=== PATIENT | male | born 1965 | race Caucasian/White ===

== ENCOUNTER 2020-02-10 06:21 | Day surgery (SDC) | payer BC ==
[2020-02-03 15:11] LABS: BASOPHILS # (AUTO) 0.1 X10'3 (0-0.2); EOSINOPHILS # (AUTO) 0.2 X10'3 (0-0.9); EOSINOPHILS % (AUTO) 2.7 % (0-6); LYMPHOCYTES # (AUTO) 0.9 X10'3 (1.1-4.8); LYMPHOCYTES % (AUTO) 15.2 % (21-51); MEAN CORPUSCULAR HEMOGLOBIN 30.2 PG (27.0-31.0); MEAN CORPUSCULAR HGB CONC 34.5 g/dL (33.0-36.5); MEAN CORPUSCULAR VOLUME 87.6 FL (78-98); MEAN PLATELET VOLUME 8.5 FL (7.4-10.4); MONOCYTES # (AUTO) 0.6 X10'3 (0-0.9); NEUTROPHILS # (AUTO) 4.2 X10'3 (1.8-7.7); NEUTROPHILS % (AUTO) 71.1 % (42-75); PRE OP HEMATOCRIT 45.5 % (42.0-52.0); PRE OP HEMOGLOBIN 15.7 g/dL (14.0-17.9); PRE OP PLATELET COUNT 230 X10'3 (140-440); RED BLOOD COUNT 5.19 X10'6 (4.70-6.10); RED CELL DISTRIBUTION WIDTH 13.6 % (11.5-14.5)
[2020-02-03 15:20] LABS: PRE OP PROTIME 10.6 SECONDS (9.0-12.0)
[2020-02-03 15:21] LABS: ALBUMIN 4.1 G/DL (3.4-5.0); ALBUMIN/GLOBULIN RATIO 1.4 (1.1-1.5); ALKALINE PHOSPHATASE 71 IU/L (46-116); BLOOD UREA NITROGEN 13 MG/DL (7-18); CALCIUM 8.5 MG/DL (8.5-10.1); CHLORIDE 108 MMOL/L (99-107); CREATININE 1.18 MG/DL (0.60-1.10); PRE OP ALT 41 U/L (30-65); PRE OP ANION GAP 8 (8-16); PRE OP AST 22 U/L (10-37); PRE OP BILIRUB, TOTAL 0.3 MG/DL (0.0-1.0); PRE OP GLUCOSE 103 MG/DL (70-104); PRE OP POTASSIUM 4.1 MMOL/L (3.4-5.1); PRE OP SODIUM 144 MMOL/L (135-145); TOTAL CARBON DIOXIDE 27.7 MMOL/L (24-32); TOTAL PROTEIN 7.1 G/DL (6.4-8.2); eGFR 64 ML/MIN
[~2020-02-10] VITALS: Ht 172.7 cm; Wt 98.0 kg
[2020-02-10] VITALS (9 sets, daily range): BP systolic 130–149; BP diastolic 77–104
[~2020-02-10 06:21] MED LIST: ACET-1025 PO; AZEL137S4 BOTHNARES; famotidine 20mg tablet PO ONE; oxymetazoline 15 ML nasal spray NS PRN; ringers solution, lacted 1,000 ML IV SCH
[2020-02-10] MEDS ORDERED: methylPREDNISolone acetate 80mg/ml inj**IM only ONE (06:44)
[2020-02-10] MEDS ORDERED: cocaine 4% topical solution 4ml bottle ONE (06:44)
[2020-02-10] MEDS ORDERED: LIDOcaine 1% W/epiNEPHrine 1:100,000 20ml vial ONE ×2 (06:44→07:05)
[2020-02-10] MEDS ORDERED: mupirocin 2% ointment 22GM ONE (06:45)
[2020-02-10] MEDS ORDERED: cefTAZidime 1gm inj ONE (06:45)
[2020-02-10] MEDS ORDERED: oxymetazoline 15 ML nasal spray NS ONE (06:45)
[2020-02-10] MEDS ORDERED: fentaNYL/PF 50MCG/1 ML 2ML syringe ONE ×2 (07:53→08:54)
[2020-02-10] MEDS ORDERED: midazolam 2 mg/2 ml injection ONE (07:53)
[2020-02-10] MEDS ORDERED: propofol inj 20 ML IV ONE (07:55)
[2020-02-10] MEDS ORDERED: LIDOcaine 2% (20mg/ml) 5ml vial ONE (07:55)
[2020-02-10] MEDS ORDERED: sevoflurane 250ml liquid IH ONE (08:00)
[2020-02-10] MEDS ORDERED: morphine 4 MG/ML inj SYRINge IV PRN (08:50)
[2020-02-10] MEDS ORDERED: proCHLORperazine 10 MG/2 ml inj IV PRN (08:50)
[2020-02-10] MEDS ORDERED: ondansetron/PF 4mg/2ml inj IV PRN (08:50)
[2020-02-10] MEDS ORDERED: meperidine/PF 25mg/ml syringe IV PRN ×2 (08:50)
[2020-02-10] MEDS ORDERED: morphine 2 MG/ML inj. syringe IV PRN (08:50)
[2020-02-10] MEDS ORDERED: ringers solution, lacted 1,000 ML IV SCH (08:50)
[2020-02-10] MEDS ORDERED: ondansetron/PF 4mg/2ml inj ONE (09:52)
[2020-02-10] MEDS ORDERED: dexamethasone sod phosphate 4mg/ml inj. ONE (09:52)
--- NOTE | 2020-02-10 10:20 | NUR ---
Received from OR via BED , accompanied by Anesthesiologist DR HUTCHINS and report given by Anesthesiolgist. PATIENT WAKING UP, DENIES PAIN, V/S WNL, CSM INTACT, 20G PIV TO RUE, COTTONOID PACKING TO BILATERALLY SINUSES WITH NO ACTIVE DRAINAGE VISABLE AT THIS TIME
[2020-02-10] MEDS: meperidine/PF 25mg/ml syringe IV PRN ×2 (10:43→11:09)
[2020-02-10] MEDS ORDERED: salt irrigation nasal spray 45 ML SPRAY NS PRN (10:50)
--- NOTE | 2020-02-10 11:50 | NUR ---
PATIENT A&OX4, DENIES PAIN, V/S WNL, CSM INTACT, 20G PIV TO RUE D/C, COTTONOID PACKING TO BILATERALLY SINUSES REMOVED 30MIN AFTER ARRIVAL AND HE WAS GIVEN OCEAN SPRAY AND OINTMENT INSTRUCTED. THERE IS NO EXCESSIVE DRAINAGE VISABLE AT THIS TIME. I HAVE REVIEWED D/C INSTRUCTIONS WITH PATIENT AND FAMILY AND THEY HAVE VERBALIZED UNDERSTANDING. PATIENT D/C HOME WITH ALL BELONGINGS AND FAMILY GAVE TRANSPORT HOME.PATIENT OFFERED MASK BUT REFUSED TO WEAR IT AT UPON D/C.
== END 2020-02-10 11:50 | disposition home or self-care (01) ==
LOC: PAS 06:21
PROVIDERS: ATTEND Otolaryngology
DX: J34.2 Deviated nasal septum (principal); J34.3 Hypertrophy of nasal turbinates; J32.8 Other chronic sinusitis; J33.8 Other polyp of sinus; G47.33 Obstructive sleep apnea (adult) (pediatric); Z20.828 Contact with and (suspected) exposure to other viral communicable diseases; Z79.899 Other long term (current) drug therapy; Z79.01 Long term (current) use of anticoagulants; Z98.890 Other specified postprocedural states
CPT/HCPCS: 30140; 30520; 31240; 31253; 31267; 36415; 61782; 80053; 82948; 85025; 85576; 85610; 85730; 87070; 87077; 87186; 87635; 93005; A6402; C9250; C9803; J0713; J1040; J1100; J2001; J2175; J2250; J2405; J2704; J3010; J7040; J7120; A4618; A7000